=== PATIENT | male | born 1935 | race Caucasian/White ===

== ENCOUNTER 2021-02-05 08:00 | Day surgery (SDC) | payer MEDICARE, BC ==
[2021-02-05] VITALS (12 sets, daily range): BP systolic 140–177; BP diastolic 64–87
[~2021-02-05] VITALS: Ht 167.6 cm; Wt 75.7 kg
[~2021-02-05 08:00] MED LIST: ASPI81TA52 PO; CEFD300C17 PO; CLOP75TA15 PO; FLO0.4C PO; FURO-149 PO; LOSA100T57 PO; MELO-102 PO; METO-411 PO; PRAV80TA3 PO; TRAM50TA2 PO; ZALE5CAP2 PO
[2021-02-05] MEDS ORDERED: normal saline 1,000 ML IV SCH (08:30)
[2021-02-05] MEDS ORDERED: diphenhydrAMINE 25mg capsule PO PRN (08:30)
[2021-02-05] MEDS ORDERED: midazolam 1 mg/ML 2ml injection ONE ×3 (09:38→11:25)
[2021-02-05] MEDS ORDERED: fentaNYL/PF 50MCG/1 ML 2ML syringe ONE (09:39)
[2021-02-05] MEDS ORDERED: LIDOcaine 1% (10mg/ml)w/preservative injection 20ml MDV ONE (09:39)
[2021-02-05] MEDS ORDERED: iohexol 350MG/ML 100ml bottle IV ONE ×2 (09:39→11:16)
[2021-02-05] MEDS ORDERED: iohexol 350 MG/ML 50ML vial IV ONE (09:39)
[2021-02-05] MEDS ORDERED: heparin 1,000unit/ml 10ml vial 10 ML ONE (09:39)
[2021-02-05 09:45] LABS: BASOPHILS % (AUTO) 0.1 % (0-1); EOSINOPHILS # (AUTO) 0.1 X10'3 (0-0.9); HEMOGLOBIN 12.6 g/dl (14.0-17.9); LYMPHOCYTES % (AUTO) 21.4 % (21-51); MEAN CORPUSCULAR HEMOGLOBIN 27.4 PG (27.0-31.0); MEAN CORPUSCULAR HGB CONC 33.2 g/dL (33.0-36.5); MEAN CORPUSCULAR VOLUME 82.6 FL (78-98); MEAN PLATELET VOLUME 7.6 FL (7.4-10.4); MONOCYTES # (AUTO) 0.4 X10'3 (0-0.9); MONOCYTES % (AUTO) 9.6 % (2-12); NEUTROPHILS % (AUTO) 65.9 % (42-75); PLATELET COUNT 340 X10'3 (140-440); RED CELL DISTRIBUTION WIDTH 16.6 % (11.5-14.5); WHITE BLOOD COUNT 4.6 X10'3 (4.5-11.0)
[2021-02-05 09:46] LABS: ALBUMIN 3.2 G/DL (3.4-5.0); ANION GAP 11 (8-16); BLOOD UREA NITROGEN 23 MG/DL (7-18); BUN/CREATININE RATIO 19.8 (5.4-32.0); CALCIUM 8.7 MG/DL (8.5-10.1); CHLORIDE 106 MMOL/L (99-107); CREATININE 1.16 MG/DL (0.60-1.10); GLUCOSE 92 MG/DL (70-104); POTASSIUM 4.5 MMOL/L (3.5-5.1); SODIUM 141 MMOL/L (135-145); eGFR 60 ML/MIN
[2021-02-05] MEDS ORDERED: proCHLORperazine 10 MG/2 ml inj ONE (11:01)
[2021-02-05] MEDS ORDERED: hydrALAZINE 20mg/ml inj. IV ONE (11:30)
[2021-02-05] MEDS ORDERED: nitroGLYCERIN-Tridil 50MG/D5W 250 ML IV ONE (11:33)
[2021-02-05] MEDS ORDERED: clopidogrel 300mg tablet ONE (11:45)
[2021-02-05] MEDS ORDERED: flumazenil 0.1 mg/ml inj. IV ONE (11:46)
[2021-02-05] MEDS ORDERED: HYDROcodone/acetaminophen 10/325mg tab PO PRN (12:25)
[2021-02-05] MEDS ORDERED: proCHLORperazine 10 MG/2 ml inj IV PRN (12:25)
[2021-02-05] MEDS ORDERED: ondansetron/PF 4mg/2ml inj IV PRN (12:25)
[2021-02-05] MEDS ORDERED: normal saline 1000ml 1,000 ML IV SCH (12:25)
[2021-02-05] MEDS ORDERED: HYDROcodone/acetaminophen 5mg/325mg tablet PO PRN (12:25)
--- NOTE | 2021-02-05 12:45 | NUR ---
pt placed in reversed trendelenberg after saying he cannot lay flat and cannot breath. pt spo2 99%
--- NOTE | 2021-02-05 13:10 | NUR ---
pt screaming at while shes trying to keep him laying flat in the bed. explained to pt how he needs to say flat. Verbalized understanding, stated "I will be good"
--- NOTE | 2021-02-05 13:20 | NUR ---
Pt again screaming in bed. Wants to sit up. pt placed in reversed trendelenberg.
--- NOTE | 2021-02-05 14:40 | NUR ---
pt screaming at about wanting to get out of bed. pt states she cannot continue to listen to him screaming at her and will be in the lobby. Pt says to me "Im sorry" once she leaves. Explained importance of laying flat and increased risk of bleeding with movement.
--- NOTE | 2021-02-05 14:47 | NUR ---
walked into pt room and observed pt on right side. As soon as I walked in pt rolled back to supine. No signs of hematoma.
--- NOTE | 2021-02-05 15:40 | NUR ---
pt at up in bed, no signs of hematoma. Addendum: 02/05/21 at 1541 by Julian Be RN pt sat up in bed no distress noted. no signs of hematoma.
== END 2021-02-05 16:25 | disposition home or self-care (01) ==
LOC: SSTAY O 08:00
PROVIDERS: ATTEND Internal Medicine Cardiovascular Disease
DX: R94.39 Abnormal result of other cardiovascular function study (principal); R07.89 Other chest pain; I25.118 Atherosclerotic heart disease of native coronary artery with other forms of angina pectoris; I25.2 Old myocardial infarction; I50.9 Heart failure, unspecified; I47.2 Ventricular tachycardia; I10 Essential (primary) hypertension; E78.5 Hyperlipidemia, unspecified; K21.9 Gastro-esophageal reflux disease without esophagitis; J44.9 Chronic obstructive pulmonary disease, unspecified; Z85.819 Personal history of malignant neoplasm of unspecified site of lip, oral cavity, and pharynx; Z79.899 Other long term (current) drug therapy; Z79.01 Long term (current) use of anticoagulants; Z95.1 Presence of aortocoronary bypass graft; Z98.890 Other specified postprocedural states; Z88.5 Allergy status to narcotic agent; Z88.8 Allergy status to other drugs, medicaments and biological substances
CPT/HCPCS: 36415; 80048; 83735; 85025; 85610; 92978; 93005; 93459; 99152; 99153; C1725; C1751; C1753; C1760; C1769; C1874; C1894; C9600; J0360; J0780; J1644; J2250; J3010; J3490; J7030; Q0163; Q9967; 92920; 93458; A6258